=== PATIENT | male | born 1985 | race Hispanic/Latino ===

== ENCOUNTER 2019-08-23 16:15 | Emergency (ER) | payer OTHER ==
[2019-08-23] MEDS ORDERED: Acetaminophen 325 MG/10.15 ML UDCUP ONE (17:26)
[2019-08-23] MEDS ORDERED: Ibuprofen 200 MG TAB ONE (17:26)
[2019-08-24 11:50] LABS: SARS-CoV-2 MS2 Positive; SARS-CoV-2 N Gene Positive; SARS-CoV-2 S Gene Positive; SARS-CoV-2 orf1ab Positive
== END 2019-08-23 18:43 | disposition home or self-care (01) ==
LOC: ERS 16:15
DX: U07.1 COVID-19 (principal); E11.9 Type 2 diabetes mellitus without complications
CPT/HCPCS: 87635; 99283; U0003

== ENCOUNTER 2021-07-07 01:48 | Emergency (ER) | payer OTHER, SELFPAY | END 2021-07-07 03:27 | disposition home or self-care (01) | LOC: ERS 01:48 | DX: H65.91 Unspecified nonsuppurative otitis media, right ear (principal); H61.21 Impacted cerumen, right ear; I10 Essential (primary) hypertension; E11.9 Type 2 diabetes mellitus without complications | CPT/HCPCS: 99283 ==

== ENCOUNTER 2021-07-07 22:57 | Emergency (ER) | payer OTHER, SELFPAY | END 2021-07-07 23:38 | disposition home or self-care (01) | LOC: ERS 22:57 | DX: H66.91 Otitis media, unspecified, right ear (principal); H65.92 Unspecified nonsuppurative otitis media, left ear; E11.9 Type 2 diabetes mellitus without complications; I10 Essential (primary) hypertension | CPT/HCPCS: 99282 ==

== ENCOUNTER 2024-02-05 11:19 | Emergency (ER) | payer OTHER ==
[2024-02-05 12:31] LABS: #Basophils Less than 0.03 10x3/uL (0.0-0.2); %Basophils 0.2 % (0.0-1.0); %Eosinophils 0.7 % (0.0-10.0); %Lymphocytes 24.1 % (21.0-51.0); %Monocytes 5.8 % (0.0-10.0); %Neutrophils 68.8 % (42.0-75.0); Hematocrit 43.8 % (42.0-52.0); Hemoglobin 14.3 g/dL (14.0-18.0); Mean Corpuscular HGB CONC 32.6 g/dL (32.0-36.0); Mean Corpuscular Volume 82.6 fL (78.0-98.0); Platelet Count 288 10x3/uL (130-400); RBC Distribution Width 12.3 % (11.5-14.5)
[2024-02-05 12:45] LABS: ALT (SGPT) 14 U/L (8-55); AST (SGOT) 13 U/L (5-34); Albumin 3.6 g/dL (3.5-5.0); Alkaline Phosphatase 94 U/L (40-110); Anion Gap 12 mmol/L (10-20); BUN (Urea Nitrogen) 12 mg/dL (8.9-20.6); Bilirubin, Total 0.3 mg/dL (0.2-1.2); Calc. Creatinine Clearance 0 mL/min (70-130); Calcium 9.3 mg/dL (7.8-10.44); Carbon Dioxide 27 mmol/L (22-29); Chloride 102 mmol/L (98-107); Estimated GFR 117; Globulin 3.9 g/dL (2.4-3.5); Glucose 167 mg/dL (70-105); Potassium 3.8 mmol/L (3.5-5.1); Protein, Total 7.5 g/dL (6.0-8.3); Sodium 137 mmol/L (136-145)
[2024-02-05 12:50] LABS: Troponin I Less than 0.010 ng/mL (< 0.028)
== END 2024-02-05 14:17 | disposition home or self-care (01) ==
LOC: ERS 11:19
DX: I10 Essential (primary) hypertension (principal); E10.9 Type 1 diabetes mellitus without complications; Z55.0 Illiteracy and low-level literacy; Z79.4 Long term (current) use of insulin; Z79.899 Other long term (current) drug therapy
CPT/HCPCS: 36415; 71045; 80053; 84484; 85025; 93005